=== PATIENT | male | born 1945 | race Caucasian/White ===

== ENCOUNTER 2018-10-08 15:23 | Emergency (ER) | payer OTHER ==
[~2018-10-08] VITALS: Ht 172.7 cm; Wt 79.4 kg
[~2018-10-08 15:23] MED LIST: AVAPRO150 MG; NORMODYNE200 MG; TRANDATE300 MG
[2018-10-08] MEDS ORDERED: SYNTHROID50 MCG (16:34)
[2018-10-08] MEDS ORDERED: DONEPEZIL HCL OD5 MG (16:34)
== END 2018-10-08 20:55 | disposition home or self-care (01) ==
LOC: ER 15:23
DX: R55 Syncope and collapse (principal)

== ENCOUNTER 2019-07-06 21:47 | Emergency (ER) | payer OTHER ==
[~2019-07-06] VITALS: Ht 172.7 cm; Wt 79.4 kg
[~2019-07-06 21:47] MED LIST changes: +DONEPEZIL HCL OD5 MG; +SYNTHROID50 MCG
[2019-07-06] MEDS ORDERED: ARICEPT10 MG (22:49)
[2019-07-06] MEDS ORDERED: LIPITOR20 MG (22:49)
[2019-07-06] MEDS ORDERED: METFORMIN HCL500 M1 (22:50)
== END 2019-07-07 04:36 | disposition home or self-care (01) ==
LOC: ER 21:47
DX: G45.8 Other transient cerebral ischemic attacks and related syndromes (principal)

== ENCOUNTER 2019-07-07 18:04 | Inpatient (IN) | payer OTHER ==
[~2019-07-07] VITALS: Ht 172.7 cm; Wt 79.4 kg
[~2019-07-07 18:04] MED LIST changes: +ARICEPT10 MG; +LIPITOR20 MG; +METFORMIN HCL500 M1
== END 2019-07-12 15:50 | disposition home or self-care (01) | DRG 64 ==
LOC: ER 18:04 → SEC-K 07-08 06:22 → MEDJ 07-08 06:22 → SEC-K 07-08 07:25 → MEDJ 07-08 09:12
PROVIDERS: ADMIT Internal Medicine Cardiovascular Disease
PROC: B030ZZZ Magnetic Resonance Imaging (MRI) of Brain (ICD-10-PCS; principal; 2019-07-08)
PROC: B246ZZZ Ultrasonography of Right and Left Heart (ICD-10-PCS; 2019-07-08)
PROC: B345ZZZ Ultrasonography of Bilateral Common Carotid Arteries (ICD-10-PCS; 2019-07-08)
PROC: B348ZZZ Ultrasonography of Bilateral Internal Carotid Arteries (ICD-10-PCS; 2019-07-08)
PROC: 4A12X4Z Monitoring of Cardiac Electrical Activity, External Approach (ICD-10-PCS; 2019-07-08)
DX: I63.133 Cerebral infarction due to embolism of bilateral carotid arteries (principal); I50.41 Acute combined systolic (congestive) and diastolic (congestive) heart failure; G81.94 Hemiplegia, unspecified affecting left nondominant side; Z99.11 Dependence on respirator [ventilator] status; R47.81 Slurred speech; I11.0 Hypertensive heart disease with heart failure; G47.33 Obstructive sleep apnea (adult) (pediatric); R29.702 NIHSS score 2; E11.9 Type 2 diabetes mellitus without complications; Z79.4 Long term (current) use of insulin
CPT/HCPCS: 70551

== ENCOUNTER 2020-06-08 15:21 | Outpatient (CLI) | payer OTHER | END 2020-06-08 15:25 | disposition home or self-care (01) | LOC: EKG 15:21 | PROVIDERS: ATTEND Ophthalmology | DX: R07.89 Other chest pain (principal) ==